=== PATIENT | female | born 1985 | race Caucasian/White ===

== ENCOUNTER → 2021-06-20 08:07 | Outpatient (CLI) | payer OTHER, SELFPAY ==
[2021-06-20 09:27] LABS: HCG Quantitative /Beta subunit 247.5 mIU/mL
== END ==
PROVIDERS: Referring Provider Obstetrics & Gynecology; Visit Provider Obstetrics & Gynecology
DX: N91.2 Amenorrhea, unspecified (principal); N96 Recurrent pregnancy loss
CPT/HCPCS: 36415; 84702

== ENCOUNTER → 2021-06-22 09:07 | Outpatient (CLI) | payer OTHER, SELFPAY ==
[2021-06-22 10:25] LABS: HCG Quantitative /Beta subunit 566.2 mIU/mL
== END ==
PROVIDERS: Referring Provider Obstetrics & Gynecology; Visit Provider Obstetrics & Gynecology
DX: N91.2 Amenorrhea, unspecified (principal); N96 Recurrent pregnancy loss
CPT/HCPCS: 36415; 84702

== ENCOUNTER → 2021-08-01 09:26 | Outpatient (CLI) | payer OTHER, SELFPAY ==
[2021-08-01 10:10] LABS: Specimen Label Y
[2021-08-01 10:27] LABS: Add Manual Diff / Slide Review NO; Basophils Absolute Auto 0 /uL (0-100); Basophils Percent Auto 0.2 % (0-2); Eosinophils Absolute Auto 100 /uL (0-450); Eosinophils Percent Auto 1.7 % (2-4); Hematocrit 35.5 % (36-46); Hemoglobin 12.6 g/dL (12.0-16.0); Lymphocytes Absolute Auto 2000 /uL (1100-4500); Mean Corpuscular HGB Conc 35.4 % (30-36); Mean Corpuscular Hemoglobin 29.6 PG (26-34); Mean Corpuscular Volume 83.8 fL (80-100); Monocytes Absolute Auto 400 /uL (0-900); Neutrophils Absolute Auto 6400 /uL (1500-7000); Neutrophils Percent Auto 71.1 % (50-75); Platelet Count 308 X10^3/uL (150-400); Red Blood Cell Count 4.23 X10^6/uL (4.0-5.2); Red Cell Distribution Width 12.7 % (11.6-14.8)
[2021-08-01 10:54] LABS: Appearance Urine UA SL CLOUDY; Bilirubin Urine UA NEGATIVE (NEGATIVE); Color Urine UA YELLOW; Glucose Urine UA NEGATIVE (Negative); Ketones Urine UA NEGATIVE (NEGATIVE); Leukocyte Esterase Urine UA TRACE (NEGATIVE); Nitrite Urine UA NEGATIVE (Negative); Occult Blood Urine UA 1+ (Negative); Protein Urine UA NEGATIVE (Negative); Specific Gravity Urine UA 1.025 (1.000-1.035); Urobilinogen Urine UA 0.2 E.U./dL (0.2)
[2021-08-01 10:57] LABS: pH Urine UA 5.5 (4.5-8.0)
[2021-08-01 11:13] LABS: Bacteria Urine None Seen; Culture Indicated Urine Cult Not Indicated; RBC Urine 5-10/HPF (0-5/HPF); Squamous Epithelial Cell Urine 5-10 /HPF (0-5/HPF); WBC Urine 1-5/HPF (0-5/HPF)
[2021-08-01 11:15] LABS: Hepatitis B Surface Antigen NEGATIVE s/c (NEGATIVE); Rubella Antibody IgG 17.2 IU/mL (>15)
[2021-08-01 11:38] LABS: HIV 1 & 2 Ab/Ag 4th Gen Combo NEGATIVE (NEGATIVE); Hep C Virus Ab w/Reflex Quant NEGATIVE s/c (NEGATIVE)
[2021-08-02 05:23] LABS: RPR Screen Non Reactive (Non Reactive)
[2021-08-02 08:58] LABS: Varicella IgG Antibody 1763 index (Immune >165)
== END ==
LOC: LAB 09:29
PROVIDERS: Referring Provider Obstetrics & Gynecology; Visit Provider Obstetrics & Gynecology
DX: O09.521 Supervision of elderly multigravida, first trimester (principal)
CPT/HCPCS: 36415; 80055; 81003; 81015; 86787; 86803; 86850; 86900; 86901; 87086; 87389

== ENCOUNTER → 2021-09-17 15:21 | Outpatient (CLI) | payer OTHER, SELFPAY ==
[2021-09-17 20:41] LABS: Urine N gonorrhoeae NOT DETECTED
[2021-09-17 20:45] LABS: Urine Chlamydia NOT DETECTED
== END ==
PROVIDERS: Visit Provider Obstetrics & Gynecology
DX: Z34.82 Encounter for supervision of other normal pregnancy, second trimester (principal); Z3A.16 16 weeks gestation of pregnancy
CPT/HCPCS: 87491; 87591

== ENCOUNTER → 2021-09-17 15:53 | Outpatient (CLI) | payer OTHER, SELFPAY ==
[2021-09-20 12:57] LABS: AFP Value 35.6 ng/mL (.); Gest Age on Col Date 17.7 weeks (.); Gestational Age Ultrasound (.); Insulin Dep Diabetes No (.); OSBR Risk 1IN 8933 (.); Test Results *Screen Negative* (.)
== END ==
PROVIDERS: Referring Provider Obstetrics & Gynecology; Visit Provider Obstetrics & Gynecology
DX: Z34.82 Encounter for supervision of other normal pregnancy, second trimester (principal); Z3A.16 16 weeks gestation of pregnancy
CPT/HCPCS: 36415; 82105; 87491; 87591

== ENCOUNTER → 2021-10-12 12:31 | Outpatient (CLI) | payer OTHER, SELFPAY ==
--- NOTE | 2021-10-12 12:32 | DI.US.S_ITS ---
PROCEDURE: US OB >= 14 WEEKS FETUS INDICATIONS: ANATOMY SCAN OUTSIDE/PRIOR DATING DATA: Last menstrual period (LMP): 05/23/2021 LMP-based estimated date of delivery (LESLIE): 02/27/2022 First dating scan (date and location): 07/23/2021 Estimated date of delivery (LESLIE) from first dating scan: 02/25/2022 TECHNIQUE: Real-time scanning was performed of the fetus, with image documentation and biometric measurements. Endovaginal scanning: Not performed. COMPARISON: [facility], [place], US OB <= 14 WEEKS FETUS, 08/20/2021, 14:53. FINDINGS: General: A single living intrauterine gestation is present. Presentation: Cephalic. Placenta: Placental position is posterior , without previa. Amniotic fluid index: 14.6 cm, normal range is 5-24 cm. Single deepest vertical pocket is 4.2 cm. heart rate: 137 beats per minute. Maternal cervical canal: 3.6 cm long. Normal lower limit is 2.5 cm. biometrics: Biparietal diameter: 4.8 cm, 20 weeks 3 days Head circumference: 18.1 cm, 20 weeks 3 days Abdominal circumference: 15.6 cm, 20 weeks 5 days Femur length: 3.5 cm, 21 weeks 0 days Clinically estimated gestational age: 20 weeks 2 days Composite gestational age from present scan: 20 weeks 5 days Estimated weight and percentile: 379 g, 59th percentile Anatomic survey: Neuro: Ventricles are non-dilated at less than 10 mm. Cisterna magna is normal at 3-11 mm. Cerebellum is normal in size and morphology. Nuchal skin fold: Normal at less than 6 mm between 14-21 weeks gestational age. Face: Profile, nose, lips not well visualized. Spine: No evidence for spina bifida. Heart: Not well visualized Diaphragm: Not well visualized. Stomach: Left-sided stomach is present. Kidneys: No hydronephrosis. Normal is less than 5 mm in 2nd trimester, less than 7 mm in 3rd trimester. Cord: 3-vessel cord. cord insertion appears unremarkable. Placental insertion not well seen. Bladder: Normal in size. Extremities: All 4 extremities identified. IMPRESSION: 1. Single living intrauterine , gestational age 20 weeks 4 days by initial ultrasound. 2. Suboptimal anatomy scan with several anatomic structures not well visualized as above. The well visualized anatomy appears normal. Short-term follow-up is recommended. 3. Estimated weight at the 59th percentile. 4. Amniotic fluid index within normal limits. We strive to produce accurate, complete, and clear reports of imaging services. To assist us in improving patient care, this report was composed using standard report templates and voice recognition software. Therefore, it may contain abnormal punctuation, insertions and/or omissions. Occasional wrong-word or sound-alike substitutions may occur. Though we review the report and make efforts to correct it, we do recommend that the report be read carefully in proper context to recognize any text inaccuracies. Dictated by: Gene Mancini M.D. on 10/12/2021 at 18:38 Approved by: Gene Mancini M.D. on 10/12/2021 at 18:52
== END ==
PROVIDERS: Referring Provider Obstetrics & Gynecology; Visit Provider Obstetrics & Gynecology
DX: Z34.82 Encounter for supervision of other normal pregnancy, second trimester (principal); Z3A.20 20 weeks gestation of pregnancy
CPT/HCPCS: 76811

== ENCOUNTER → 2021-10-24 10:27 | Outpatient (CLI) | payer OTHER, SELFPAY ==
--- NOTE | 2021-10-24 10:28 | DI.US.S_ITS ---
PROCEDURE: US OB FOLLOW UP INDICATIONS: follow up to anatomy scan OUTSIDE/PRIOR DATING DATA: Last menstrual period (LMP): 05/23/2021. LMP-based estimated date of delivery (LESLIE): 02/27/2022. First dating scan (date and location): 07/03/2021. Estimated date of delivery (LESLIE) from first dating scan: 02/25/2022 TECHNIQUE: Real-time scanning was performed of the fetus, with image documentation and biometric measurements. Endovaginal scanning: Now COMPARISON: None. FINDINGS: General: A single living intrauterine gestation is present. Presentation: Transverse with head to maternal left. Placenta: Placental position is posterior , without previa. Amniotic fluid index: 14.1 cm, normal range is 5-24 cm. heart rate: 135 beats per minute. Maternal cervical canal: 4.3 cm long. Normal lower limit is 2.5 cm. Anatomic survey: Survey of anatomy was included performed on prior examination. Anatomic visualization remains suboptimal secondary to body habitus. On the current examination, placental cord insertion, diaphragm, kidneys, and profile are within normal limits. The heart, nose and lips are visualized but are suboptimally visualized. IMPRESSION: 1. Single living intrauterine gestation. 2. Survey of anatomy remains suboptimal secondary to body habitus as described above. We strive to produce accurate, complete, and clear reports of imaging services. To assist us in improving patient care, this report was composed using standard report templates and voice recognition software. Therefore, it may contain abnormal punctuation, insertions and/or omissions. Occasional wrong-word or sound-alike substitutions may occur. Though we review the report and make efforts to correct it, we do recommend that the report be read carefully in proper context to recognize any text inaccuracies. Dictated by: Andre Bernal M.D. on 10/24/2021 at 11:09 Approved by: Andre Bernal M.D. on 10/24/2021 at 11:11
== END ==
LOC: US 10:27
PROVIDERS: Referring Provider Obstetrics & Gynecology; Visit Provider Obstetrics & Gynecology
DX: Z36.2 Encounter for other antenatal screening follow-up (principal)
CPT/HCPCS: 76816

== ENCOUNTER → 2021-11-22 12:31 | Outpatient (CLI) | payer OTHER, SELFPAY ==
[2021-11-22 14:27] LABS: Hematocrit 31.8 % (36-46); Hemoglobin 11.1 g/dL (12.0-16.0)
[2021-11-22 14:57] LABS: GTT (PREG) 1 Hour PP 50gm Dose 164 mg/dL (76-139)
== END ==
PROVIDERS: Referring Provider Obstetrics & Gynecology; Visit Provider Obstetrics & Gynecology
DX: Z34.82 Encounter for supervision of other normal pregnancy, second trimester (principal); Z3A.26 26 weeks gestation of pregnancy
CPT/HCPCS: 36415; 82950; 85014; 85018

== ENCOUNTER → 2021-12-05 07:56 | Outpatient (CLI) | payer OTHER, SELFPAY ==
[2021-12-05 09:35] LABS: Glucose Fasting Gestational 85 mg/dL (76-95)
[2021-12-05 10:57] LABS: Glucose 1 Hour Gest 152 mg/dL (76-180)
[2021-12-05 11:47] LABS: Glucose 2 Hour Gest 157 mg/dL (76-155)
[2021-12-05 13:08] LABS: Glucose Tol Interp,Gestational INTERPRETATION
[2021-12-05 13:12] LABS: Glucose 3 Hour Gest 148 mg/dL (76-140)
== END ==
PROVIDERS: Referring Provider Obstetrics & Gynecology; Visit Provider Obstetrics & Gynecology
DX: O99.810 Abnormal glucose complicating pregnancy (principal)
CPT/HCPCS: 36415; 82951; 82952

== ENCOUNTER → 2022-02-04 15:09 | Outpatient (CLI) | payer OTHER, SELFPAY ==
[2022-02-05 14:49] LABS: Strep Grp B PCR NEG for Grp B Strep
== END ==
PROVIDERS: Visit Provider Obstetrics & Gynecology
DX: Z34.83 Encounter for supervision of other normal pregnancy, third trimester (principal); Z3A.36 36 weeks gestation of pregnancy
CPT/HCPCS: 87653

== ENCOUNTER 2022-02-18 05:32 | Inpatient (IN) | payer OTHER, SELFPAY ==
--- NOTE | 2022-02-18 | PATH_ITS ---
[facility] Accession Number: [id number] . 01 Material submitted: . fallopian tube - BILATERAL FALLOPIAN TUBES . 01 Diagnosis: Bilateral Fallopian Tube: Longer portion of fimbriated fallopian tube, complete cross-sections; negative for atypia or malignancy. [place] fimbriated fallopian tube, complete cross-sections; negative for atypia or malignancy. MRV 02/20/2022 1322 Local . 01 Electronically signed: . Amna Zheng MD, Pathologist NPI- [id number] . 01 Gross description: . The specimen is received in formalin labeled with the patient's name and bilateral fallopian tubes, and consists of two unoriented fimbriated fallopian tubes measuring 10.8 x 0.7 cm and 7.6 x 0.8 cm, respectively. The longer fallopian tube has congested smooth serosa with no cystic structures identified, and sectioning reveals an unremarkable stellate lumen. The shorter fallopian tube has congested smooth serosa with no cystic structures identified, and sectioning reveals an unremarkable stellate lumen. Production Utility Worker sections to include entire bisected fimbriae and cross-sections are submitted as follows: . A1: Longer fallopian tube. A2: [place] fallopian tube. ([id number]) /MRV 02/19/2022 1733 Local . 01 Pathologist provided ICD-10: Z98.891, Z3A.39, Z30.2 . 01 CPT . 104474 Specimen Comment: A courtesy copy of this report has been sent to [phone] Performed at: 01 [facility] [address] [place] [address] [address] [facility], [place], [place] [id number] MD Vincent Martinez MD Phone: [phone]
[2022-02-18 06:12] LABS: Add Manual Diff / Slide Review NO; Basophils Absolute Auto 0 /uL (0-100); Basophils Percent Auto 0.4 % (0-2); Eosinophils Absolute Auto 200 /uL (0-450); Eosinophils Percent Auto 1.7 % (2-4); Hematocrit 31.8 % (36-46); Hemoglobin 10.8 g/dL (12.0-16.0); Lymphocytes Absolute Auto 2400 /uL (1100-4500); Lymphocytes Percent Auto 17.8 % (25-40); Mean Corpuscular HGB Conc 33.9 % (30-36); Mean Corpuscular Volume 82.6 fL (80-100); Monocytes Absolute Auto 800 /uL (0-900); Monocytes Percent Auto 5.9 % (3-14); Neutrophils Absolute Auto 9800 /uL (1500-7000); Neutrophils Percent Auto 74.2 % (50-75); Platelet Count 338 X10^3/uL (150-400); Red Blood Cell Count 3.85 X10^6/uL (4.0-5.2); Red Cell Distribution Width 13.7 % (11.6-14.8); White Blood Cell Count 13.3 X10^3/uL (4.5-11.0)
[2022-02-18] MEDS: LACTATED RINGERS 1,000 ML 100 ML IV (06:12)
[2022-02-18 06:26] LABS: COVID19 -Nasal RAPID Negative (Negative)
--- NOTE | 2022-02-18 07:01 | P.HPOB_ITS ---
OB HPI Date/Time Date of admission: 02/18/22 Date Patient Seen: 02/18/22 Time Patient Seen: 07:01 History of Present Condition Chief complaint: C SECTION LESLIE Calculator Estimated Delivery Date Method Current WG Current Estimate 02/27/22 LMP (Certain) 38w 5d Estimated Gestational Age (weeks): 39 : 9 Para: 1 care: good care, initiated at week # (8), number of visits (10) and pounds weight gain (29) Dating criteria OB: LMP confirmed by 1st trimester US Ultrasounds: normal 1st trimester US and normal mid trimester US Obstetrical complications: none Medical complications OB: none Indications Operative indications ( section): previous uterine surgery Preadmission Labs Last OB Lab Results: Blood Type O Positive 02/18/22 05:55 Antibody Screen Negative 02/18/22 05:55 Hematocrit 31.8 % (36-46) L 02/18/22 05:55 Hemoglobin 10.8 g/dL (12.0-16.0) L 02/18/22 05:55 Hepatitis B Surface Antigen Negative s/c (NEGATIVE) 08/01/21 09 :46 Hepatitis C Antibody Negative s/c (NEGATIVE) 08/01/21 09:46 Rubella Antibody 17.2 IU/mL (>15) 08/01/21 09:46 Varicella-Zoster IgG Antibody 1763 index (Immune >165) 08/01/21 09:46 Glucose 1 Hour 164 mg/dL (76-139) H 11/22/21 12:43 Group B Streptococcus (PCR) Neg for grp b strep 02/04/22 15:09 Glucose Tolerance Testing: Fasting (85), 1 hr (152), 2 hr (157) and 3 hr (148) -: Chlamydia screen: negative, Gonorrhea screen: negative and Urine: negative Genetic Screens: Cell-free DNA: Normal and Alpha-fetoprotein: Normal External Labs -: Urine: negative Prior (ies) Past Pregnancies Del. Date GA/Weeks Labor Lgth Wt Sex Route Outcome Anesthesia Place Delv Breastfeed Preg Comp Name 01/02/11 7 elective 10/02/11 7 elective 04/29/18 5 spontaneous 06/24/18 5 spontaneous 08/05/18 5 spontaneous 06/18/19 39 36 7 lb 6 oz Female live - full t erm epidural [place] 2 dys none [place] 08/02/20 6 spontaneous 02/07/21 9 spontaneous Delivery Date: 01/02/11 Last Updated by: Eliza Tuttle R.N. suction in office Delivery Date: 10/02/11 Last Updated by: Eliza Tuttle R.N. Suction in office Delivery Date: 06/24/18 Last Updated by: Eliza Tuttle R.N. No complications Delivery Date: 08/05/18 Last Updated by: Eliza Tuttle R.N. No complications Delivery Date: 06/18/19 Last Updated by: Eliza Tuttle R.N. Csection for CPD Delivery Date: 08/02/20 Last Updated by: Eliza Tuttle R.N. No complications Delivery Date: 02/07/21 Last Updated by: Eliza Tuttle R.N. No Complications Evaluation Evaluation Baseline heart rate: 140 Variability: Moderate (11-25) monitor accelerations: Present Monitor Decelerations: Absent Status: Category l PFSH Medical History (Updated 07/26/21 @ 21:58 by Miryam Cabrera) Chicken pox (~1989) Spontaneous Surgical History (Updated 07/23/21 @ 09:53 by Daksha Goodson MD) History of appendectomy History of wisdom tooth extraction Family History (Updated 07/11/21 @ 13:13 by Eliza Tuttle RN) Mother Endometriosis Social History marital status: number of children: 1 household members: spouse and children lives independently: Yes housing: house pets and animals: Yes (Dogs, aware Toxoplasmosis) education level: college occupational status: employed current occupational exposures/hazards: No special amilcar needs: No seatbelt use: always water heater temp set < 120 deg: Yes working smoke detector in home: Yes fire extinguisher in home: Yes carbon monox detector in home: Yes firearms in home: Yes firearms unloaded and locked: Yes do you feel safe at home: Yes Smoking Status: Never smoker second hand exposure: No alcohol intake: former substance use type: does not use during the past year weight has: increased > 10 lbs (gained 20 pounds last yr) well-balanced diet: daily or most days daily servings fruits/ve-1 caffeine: Yes (200mg limit) Type(s) of exercise: walking frequency: 1-2 times per week Meds Home Medications and Allergies Home Medications Medication Instructions Recorded Confirmed Type progesterone micronized 100 mg 100 mg PO BID #60 caps 06/19/21 02/14/22 Rx capsule aspirin 81 mg tablet,delayed 81 mg PO DAILY 07/11/21 02/18/22 History release prenat.vits,jose j,snh-sylw-xuoug 1 tab PO DAILY 07/11/21 02/14/22 History ondansetron 4 mg disintegrating 4 mg PO Q6H PRN nausea and 08/14/21 02/14/22 Rx tablet vomiting #20 tabs hydrocortisone 2.5 % topical cream 1 applic DE QD-BID PRN hemorrhoids 12/25/21 02/14/22 Rx with perineal applicator #30 grams (Anusol-HC) hydroxyzine HCl 25 mg tablet 25 mg PO TID PRN anxiety #20 tabs 02/14/22 02/14/22 Rx sertraline 50 mg tablet 50 mg PO DAILY #30 tabs 02/14/22 02/14/22 Rx Allergies Allergy/AdvReac Type Severity Reaction Status Date / Time No Known Drug Allergies Allergy Unverified 02/14/22 15:21 OB Exam Narrative Exam Narrative: Generally: Patient is sitting up in bed, no acute distress Lungs: Clear to auscultation bilaterally Cardiovascular: Regular rate and rhythm Fundal height: 40 cm Estimated weight: 7.5-8 lb Extremities: Trace edema, 1+ DTRs Objective Labs Result Diagrams: 02/18/22 05:55 Labs: Laboratory Results - last 24 hr 02/18/22 02/18/22 02/18/22 05:55 05:55 05:55 WBC 13.3 H RBC 3.85 L Hgb 10.8 L Hct 31.8 L MCV 82.6 MCH 28.0 MCHC 33.9 RDW 13.7 Plt Count 338 Neut % (Auto) 74.2 Lymph % (Auto) 17.8 L [place] % (Auto) 5.9 Eos % (Auto) 1.7 L Baso % (Auto) 0.4 Neut # (Auto) 9800 H Lymph # (Auto) 2400 [place] # (Auto) 800 Eos # (Auto) 200 Baso # (Auto) 0 SARS-CoV-2 (PCR) Negative Blood Type O Positive Antibody Screen Negative Assessment and Plan Assessment and Plan Assessment and Plan narrative: Assessment: 37-year-old 9 para 1 at an estimated gestational age of 39 weeks with a prior section Desires permanent sterilization Plan: Repeat low-transverse section and bilateral salpingectomy The risks, benefits, and alternatives to the procedure were explained to the patient. The risks including bleeding, infection, injury to the bowel, bladder, or ureters. She also understands that removing the tubes will make her unable to have any more children. She understands all of these risks and agrees to proceed. A full par Q was held. The consent form was signed in the office. Time Spent with Patient Total time spent with greater than 50% in coordination of care (as documented) at patient's floor/unit and/or counseling patient:: less than 15 minutes
--- NOTE | 2022-02-18 07:08 | PM.PREOP ---
Pre-operative Note COVID-19 COVID-19 status: Negative Result date/Date tested (Pos, Neg/Pending): 02/18/22 Criteria for continued procedure: Non-surgical alternatives not available or appropriate per current SOC Interval Note History & Physical reviewed/Exam performed by Physician: Yes Changes to H&P: No H&P completed within 30 days and has changed as indicated here:: 02/18/22
--- NOTE | 2022-02-18 07:18 | SUR.OPER ---
Supine on Padded OR bed, head on pillow, safety belt at thigh, arms secured on padded arm boards at <90 degrees abduction. Bump under right buttock. Legs uncrossed with pillow under knees, gel pad to heels, tape over blanket to lower legs.
[2022-02-18 07:32] VITALS: BP 123/83
[2022-02-18] MEDS: CEFAZOLIN 2 GM/100 ML PREMIX 100 ML IV (07:56)
--- NOTE | 2022-02-18 09:00 | SUR.OPER ---
Baby boy delivered at 0827. Placenta delivered at 0829. Placenta and cord blood collected and sent with L&D CARRI Schumacher.
[2022-02-18 09:21] VITALS: BP 112/62; PULSE 99; RESP 14; TEMP 36.2; O2SAT 95
[2022-02-18 09:26] VITALS: BP 116/71; PULSE 120; RESP 17; O2SAT 95
--- NOTE | 2022-02-18 09:33 | P.OP_ITS ---
Operative Date/Time/Diagnoses Date of procedure: 02/18/22 Time of procedure: 09:34 Pre-op diagnosis: Estimated gestational age of 39 weeks Previous section Desires permanent sterilization Post-op diagnosis: same Procedure & Clinicians Procedure: Repeat low-transverse section Same procedure as scheduled: Yes Indications: Estimated gestational age of 39 weeks Previous section Desires permanent sterilization Surgeon: Daksha Goodson Click Yes if Unassisted: No Side Seam Tender: Maedlyn Umanzor Reason for Side Seam Tender: Side Seam Tender necessary to retract upon entry into the abdomen and uterus. She ass isted with fundal pressure on delivery of the infant. She assisted with retraction and clipping of suture on closure of the uterus and abdomen. She closed the contralateral fascia. Anesthesia Type: Spinal (With Duramorph) Operative Notes Findings: Live male in the KELSI presentation Left tube adhesed to the uterus Normal left ovary Normal right tube and ovary Closure Type: primary Specimen(s): cord blood, placenta and tubes/segments of tubes Intraoperative meds administered: Duramorph, Ketorolac and Pitocin Applied: Catheter (To continuous drainage) Estimated Blood Loss (mL): 500 Blood products transfused: none Procedure in detail: The patient was taken to the operating room where she was placed in the seated position. Spinal anesthesia with Duramorph was administered. The patient was then placed in the dorsal supine position with a leftward tilt. She was prepped and draped in the usual sterile fashion. A timeout was performed. After spinal analgesia was found to be adequate, a Pfannenstiel skin incision was made through the previous incision and carried through to the underlying layer fascia. The fascia was nicked in the midline, and the incision extended bilaterally with the Muhammad scissors. The superior aspect of the fascial incision was grasped with a [place] clamps, elevated, and the underlying rectus muscles dissected off sharply and bluntly. Attention was then turned to the inferior aspect of this incision which in a similar fashion was grasped with a Valerio clamps, elevated, and the underlying rectus muscles dissected off sharply and bluntly. The rectus muscles were in the midline. The peritoneum was identified, grasped between 2 hemostats, and entered sharply with the Metzenbaum scissors. This incision was extended superiorly and inferiorly with good visualization of the bladder. The bladder blade was inserted. No vesicouterine peritoneum could be identified. The bladder blade was reinserted. The lower uterine segment was incised in a transverse fashion with the scalpel. Upon entering the amniotic sac there was a copious amount of clear amniotic fluid. The infant's head was delivered with vacuum assistance. The nose and mouth were suctioned with bulb suction. The remainder of the body delivered without difficulty. The cord was double clamped and cut after 1 minute. The was handed off to waiting RN and RT. The placenta was delivered by expression. The uterus was cleared of all clots and debris. The uterine incision was repaired with #1 chromic in a running interlocking fashion, and a second layer the same suture was used for an imbricating layer. Hemostasis was achieved. The tubes and ovaries were examined and were found to be normal. The left tube was carried out to the fimbriated end. Using the LigaSure or, the mesosalpinx was cauterized and cut all the way to the cornua of the uterus. The tube was a mputated at the uterus with the LigaSure. This was repeated on the patient's right tube. The gutters were cleared of all clots and debris. There was no bladder flap to reapproximate. The parietal peritoneum was closed using 2-0 Vicryl in a running fashion. The fascia was reapproximated using 0 Vicryl in a running fashion. The subcutaneous layer was copiously irrigated with warm normal saline. 5 simple interrupted sutures of 3-0 Vicryl were placed to reapproximate the subcutaneous layer. The skin was closed with 4-0 Monocryl in a subcuticular fashion. Steri-Strips were placed. An Aquacel dressing was placed. The uterus was expressed of a small amount of old blood. Sponge, lap, and instrument counts were correct x 2. The patient tolerated the procedure well, and was taken to PACU in stable condition. IVF's 900cc. EBL: 500cc. Complications: none [place] Baby 1: Gender: Male Presentation: vertex Position: Left Occiput Anterior Placental Delivery Description: Expressed Cord Vessel Description: 3 Vessels and Clamped/Cut (After 1 minute) score (1 min): 8 score (5 min): 9 weight: 9 lb 13 oz Post-operative Condition: stable Disposition: PACU Aftercare: routine postop
[2022-02-18 09:36] VITALS: BP 105/57; PULSE 103; RESP 16; TEMP 36.3; O2SAT 95
[2022-02-18] MEDS: ACETAMINOPHEN 325 MG TABLET 650 MG PO (12:55)
[2022-02-18] MEDS: ONDANSETRON 4 MG/2 ML INJ IV (13:08)
[2022-02-18] MEDS: KETOROLAC 30 MG/ML VIAL IV ×2 (15:27→22:09)
[2022-02-19] MEDS: KETOROLAC 30 MG/ML VIAL IV (05:01)
[2022-02-19 06:37] LABS: Hematocrit 25.5 % (36-46); Hemoglobin 8.9 g/dL (12.0-16.0)
[2022-02-19] MEDS: IBUPROFEN 600 MG TABLET PO ×2 (11:21→17:05)
[2022-02-19] MEDS: DOCUSATE 100 MG CAPSULE 200 MG PO (14:59)
[2022-02-19] MEDS: PRENATAL VIT,CALC/IRON/FOLIC 1 TABLET 1 TAB PO (15:00)
[2022-02-19 17:05] VITALS: TEMP 36.8
[2022-02-19] MEDS: SIMETHICONE 80 MG TABLET PO (17:05)
--- NOTE | 2022-02-19 18:53 | PM.OBPN.1 ---
Subjective - OB Subjective Patient comments: no complaints and pain well controlled baby status: doing well and nursing well feeding status: exclusively bottle feeding Date Patient Seen: 02/19/22 Time Patient Seen: 12:30 Interval history: Patient is a 37-year-old postop day # 1 status post repeat low-transverse section and bilateral salpingectomy. Patient has voided without the catheter. Her pain is well controlled. She has tolerated a diet. No nausea vomiting. She is ambulating without assistance. Exam Vital Signs (past 8 hours): - 02/19/22 17:05 Temperature 98.2 F Oxygen Delivery Method Room Air Narrative Exam Narrative: Generally: Patient lying in bed, no acute distress Lungs: Clear to auscultation bilaterally Cardiovascular: Regular rate and rhythm Abdomen: Soft, appropriately tender Fundus: Firm at U-1 Incision: Clean dry and intact with Aquacel dressing Extremities: 1+ edema, negative Homans Objective Labs Result Diagrams: 02/19/22 06:25 Labs: Laboratory Results - last 24 hr 02/19/22 06:25 Hgb 8.9 L Hct 25.5 L Assessment & Plan Plan day: 1 plan OB: routine postop care Time Spent With Patient Time: Total time spent is greater than 50% in coordination of care (as documented) at patient's floor/unit and/or counseling patient: Time with patient: 15-24 minutes
[2022-02-19] MEDS: ACETAMINOPHEN 325 MG TABLET 650 MG PO (19:47)
[2022-02-20] MEDS: IBUPROFEN 600 MG TABLET PO ×2 (00:57→08:43)
[2022-02-20] MEDS: ACETAMINOPHEN 325 MG TABLET 650 MG PO (04:16)
[2022-02-20] MEDS: PRENATAL VIT,CALC/IRON/FOLIC 1 TABLET 1 TAB PO (08:43)
[2022-02-20] MEDS: DOCUSATE 100 MG CAPSULE 200 MG PO (08:43)
--- NOTE | 2022-02-24 18:52 | PM.OBDS.1 ---
Discharge Providers Provider Date of admission: 02/18/22 05:32 Discharge Date: 02/20/22 Primary care physician: Doctor Tressa MD Consults: 02/18/22 11:37 Consult to Inspector Balance Truing Routine Comment: Discharge provider: Daksha Goodson MD Summary Hospital Course Date Patient Seen: 02/20/22 Time Patient Seen: 10:30 Diagnoses: Thirty-nine weeks gestation Previous section Desires permanent sterilization Hospital Course: Patient is a 37-year-old 9 para 2 who presented on February 18, 2022 for a scheduled repeat low-transverse section and bilateral salpingectomy. She underwent this procedure without complication. Her postoperative course was unremarkable. On postop day #0 her [place] catheter was removed and she was able to void without difficulty. She tolerated a diet. Her pain was well controlled. No nausea or vomiting. She was ambulating without assistance. Her bleeding was tapering. She was bottle feeding. She was discharged home on postop day #2. Peripartum Data Delivery Method: Section Laceration Description: None Episiotomy description: None Procedures: Spinal anesthesia Repeat low-transverse section Bilateral salpingectomy complications: none [place] 1: Gender: Male Disposition of : home Status at Discharge Cognitive/behavioral status at discharge: oriented Functional status at discharge: independent ambulation Overall status at discharge: patient is progressing back to baseline Time Spent with Patient Time attestation: Total time spent providing and/or coordinating discharge services: Time spent: Less than 30 minutes Objective Labs Result Diagrams: 02/19/22 06:25 Exam Vital Signs (past 8 hours): Oxygen Delivery Method Room Air Narrative Exam Narrative: Generally: Patient is sitting up in bed, holding , no acute distress Lungs: Clear to auscultation bilaterally Cardiovascular: Regular rate and rhythm Fundus: Firm at U-1 Incision: Clean dry and intact with Aquacel dressing Extremities: 1+ edema, negative Homans Discharge Plan Discharge Plan Patient Disposition: Home Provider Discharge Comment: Call with fever, chills, redness or drainage around the incision or bleeding vaginally more than a pad in an hour Tylenol 650 mg every 6 hours as needed Ibuprofen 600 mg every 6 hours as needed Discharge orders & Medications Prescriptions: New ibuprofen 600 mg tablet 600 mg PO QID PRN (Reason: cramping) Qty: 30 2RF oxycodone 5 mg tablet 5 mg PO Q4H PRN (Reason: pain) Qty: 14 0RF Continued hydrocortisone [Anusol-HC] 2.5 % cream with perineal applicator 1 applic [place] QD-BID PRN (Reason: hemorrhoids) Qty: 30 3RF prenat.vits,jose j,uos-yrvj-qotkw Tablet 1 tab PO DAILY hydroxyzine HCl 25 mg tablet 25 mg PO TID PRN (Reason: anxiety) Qty: 20 3RF sertraline 50 mg tablet 50 mg PO DAILY Qty: 30 11RF Rx Instructions: I'll start taking this after i'm home Discontinued ondansetron 4 mg tablet,disintegrating 4 mg PO Q6H PRN (Reason: nausea and vomiting) Qty: 20 1RF Follow up/Referrals: Daksha Goodson MD [Physician] - (bplease follow up w/ Dr. Goodson on Friday, @ 1:30pm for your incision check) Diet/Activity/Treatments Diet: Regular Activity: No heavy lifting Skin/Wound/Dressing Care Report to your healthcare provider any signs of infection, such as:: chills, fever, increased pain, unusual drainage and unusual redness Dressing: Do not remove Visit Report/Discharge Packet Instructions: DI for , DI for Prescription Opioid Use Stand Alone Forms: Discharge: Care Discharge Data Primary Care Provider: Miscellaneous,Doctor
== END 2022-02-20 11:30 | disposition home or self-care (01) | DRG 785 ==
PROVIDERS: Admitting Provider Obstetrics & Gynecology; Referring Provider Obstetrics & Gynecology; Visit Provider Obstetrics & Gynecology
PROC: 10D00Z1 Extraction of Products of Conception, Low, Open Approach (ICD-10-PCS; CPT 59514; principal; 2022-02-18 07:45)
DX: O34.211 Maternal care for low transverse scar from previous cesarean delivery (principal); Z30.2 Encounter for sterilization; Z3A.39 39 weeks gestation of pregnancy; Z37.0 Single live birth; Z20.822 Contact with and (suspected) exposure to COVID-19
CPT/HCPCS: 36415; 58611; 59050; 59510; 59514; 85014; 85018; 85025; 86850; 86900; 86901; 87635; C9803; J0690; J1885; J2274; J2405; J2590